=== PATIENT | female | born 1980 | race Caucasian/White ===

== ENCOUNTER 2017-02-07 12:18 | Emergency (ER) | payer SELFPAY ==
[~2017-02-07] VITALS: Ht 170.2 cm; Wt 70.0 kg
[~2017-02-07 12:18] MED LIST: CLON.1 PO; ZOFR4TAB3 PO
[2017-02-07 12:27] VITALS: BP 131/70; PULSE 90; RESP 16; TEMP 98.3; O2SAT 100
[2017-02-07 12:58] LABS: GLUCOSE,URINE NEG (NEG); KETONE, URINE NEG (NEG); NITRITE,URINE NEG (NEG)
[2017-02-07 13:03] LABS: BLOOD, URINE MOD (NEG); METHOD OF COLLECTION CLEAN CATCH; URINE COLOR YELLOW (YELLW/STRAW)
[2017-02-07 13:04] LABS: BACTERIA, URINE FEW /hpf; COMMENT (UR) CULT NOT INDICATED; CULTURE IF INDICATED CULT NOT INDICATED; RBC, URINE 15-19 /hpf (0-3); SQUAMOUS EPITHELIAL CELL URINE > 8 /hpf (0-5); WBC, URINE 0-2 /hpf (0-5)
[2017-02-07 13:20] LABS: AUTOMATED NEUTROPHIL # 3.9 TH/MM3 (1.8-7.7); BASOPHIL # 0.1 TH/MM3 (0-0.2); BASOPHIL % 1.1 % (0.0-2.0); EOSINOPHIL # 0.3 TH/MM3 (0-0.4); EOSINOPHIL % 4.7 % (0.0-4.0); HEMO FLAGS DIFF FINAL; LYMPH % 19.4 % (9.0-44.0); LYMPHOCYTE # 1.1 TH/MM3 (1.0-4.8); MEAN CELL VOLUME 89.8 FL (80.0-100.0); MEAN CORPUSCULAR HEMOGLOBIN 29.8 PG (27.0-34.0); MEAN CORPUSCULAR HGB CONC 33.2 % (32.0-36.0); NEUT % 67.8 % (16.0-70.0); PLATELET COUNT 208 TH/MM3 (150-450); RED BLOOD COUNT 4.01 MIL/MM3 (4.00-5.30); RED CELL DISTRIBUTION WIDTH 13.7 % (11.6-17.2); WHITE BLOOD COUNT 5.8 TH/MM3 (4.0-11.0)
--- NOTE | 2017-02-07 13:21 | PD ---
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 Carrion in the past and had been recommended for hysterectomy last year, presents to the ER today because she states that she has been spotting for several days and then today was passing blood clots which looked abnormal to her. She complains of pelvic pains which she currently rates at an 8 out of 10. She denies any fevers, nausea, vomiting, or any other symptoms. She has history of irregular menses in the past although she states the last 6 months has been better. Modifying Factors: None Associated Signs & Symptoms: Heavy vaginal bleeding and passing clots Risk Factors: None PFSH Past Medical History Anxiety: Yes Depression: Yes Diminished Hearing: No Influenza Vaccination: No ?: Not LMP: two weeks ago : 1 Para: 1 Past Surgical History Section: Yes Other Surgery: Yes ( THYROIDECTOMY) Social History Alcohol Use: No Tobacco Use: Yes (1 ppd) Substance Use: Yes (polysubstance) Allergies-Medications (Allergen,Severity, Reaction): Coded Allergies: Imitrex (Verified Allergy, Severe, Anaphylaxis, 02/07/17) Reported Meds & Prescriptions Reported Meds & Active Scripts Active Review of Systems Except as stated in HPI: all other systems reviewed are Neg Physical Exam Narrative GENERAL: Well-developed young white female patient currently in mild distress. Awake and oriented 3. SKIN: Focused skin assessment warm/dry. HEAD: Atraumatic. Normocephalic. EYES: Pupils equal and round. No scleral icterus. No injection or drainage. ENT: No nasal bleeding or discharge. Mucous membranes pink and moist. NECK: Trachea midline. No JVD. CARDIOVASCULAR: Regular rate and rhythm. No murmur appreciated. RESPIRATORY: No accessory muscle use. Clear to auscultation. Breath sounds equal bilaterally. GASTROINTESTINAL: Abdomen soft, pelvic tenderness without guarding or rebound, nondistended. Hepatic and splenic margins not palpable. GENITOURINARY: Normal external genitalia without lesions or erythema. Vaginal vault with dark blood but no significant drainage. Cervical os was closed without drainage. Mild cervical motion tenderness. Uterus mildly tender and nonenlarged. Bilateral adnexa nontender without masses. MUSCULOSKELETAL: No obvious deformities. No clubbing. No cyanosis. No edema. NEUROLOGICAL: Awake and alert. No obvious cranial nerve deficits. Motor grossly within normal limits. Normal speech. PSYCHIATRIC: Appropriate mood and affect; insight and judgment normal. Data Data Last Documented VS Vital Signs Date Time Temp Pulse Resp B/P Pulse Ox O2 Delivery O2 Flow Rate FiO2 02/07/17 13:32 68 16 125/60 98 Room Air 02/07/17 12:27 98.3 Orders Complete Blood Count With Diff (02/07/17 12:32) Basic Metabolic Panel (Bmp) (02/07/17 12:32) Urinalysis - C+S If Indicated (02/07/17 12:32) Ed Urine Pregnancytest Poc (02/07/17 12:32) Gc And Chlamydia Pcr (02/07/17 13:27) Wet Prep Profile (02/07/17 13:27) Labs Laboratory Tests Test 02/07/17 02/07/17 12:40 13:10 Urine Collection Type CLEAN CATCH Urine Color YELLOW Urine Turbidity CLEAR Urine pH 7.0 Urine Specific Stem 1.025 Urine Protein TRACE mg/dL Urine Glucose (UA) NEG mg/dL Urine Ketones NEG mg/dL Urine Occult Blood MOD Urine Nitrite NEG Urine Bilirubin NEG Urine Leukocyte Esterase TRACE Urine RBC 15-19 /hpf Urine WBC 0-2 /hpf Urine Squamous Epithelial > 8 /hpf Cells Urine Bacteria FEW /hpf Microscopic Urinalysis Comment CULT NOT INDICATED Urine Collection Time 12:40 White Blood Count 5.8 TH/MM3 Red Blood Count 4.01 MIL/MM3 Hemoglobin 11.9 GM/DL Hematocrit 36.0 % Mean Corpuscular Volume 89.8 FL Mean Corpuscular Hemoglobin 29.8 PG Mean Corpuscular Hemoglobin 33.2 % Concent Red Cell Distribution Width 13.7 % Platelet Count 208 TH/MM3 Mean Platelet Volume 9.0 FL Neutrophils (%) (Auto) 67.8 % Lymphocytes (%) (Auto) 19.4 % Monocytes (%) (Auto) 7.0 % Eosinophils (%) (Auto) 4.7 % Basophils (%) (Auto) 1.1 % Neutrophils # (Auto) 3.9 TH/MM3 Lymphocytes # (Auto) 1.1 TH/MM3 Monocytes # (Auto) 0.4 TH/MM3 Eosinophils # (Auto) 0.3 TH/MM3 Basophils # (Auto) 0.1 TH/MM3 CBC Comment DIFF FINAL Differential Comment Sodium Level 139 MEQ/L Potassium Level 3.6 MEQ/L Chloride Level 104 MEQ/L Carbon Dioxide Level 29.8 MEQ/L Anion Gap 5 MEQ/L Blood Urea Nitrogen 12 MG/DL Creatinine 0.58 MG/DL Estimat Glomerular Filtration 119 ML/MIN Rate Random Glucose 95 MG/DL Calcium Level 8.6 MG/DL MDM Medical Decision Making Medical Screen Exam Complete: Yes Emergency Medical Condition: Yes Medical Record Reviewed: Yes Interpretation(s) Laboratory Tests Test 02/07/17 02/07/17 12:40 13:10 Urine Occult Blood MOD (NEG) Urine Leukocyte Esterase TRACE (NEG) Urine RBC 15-19 /hpf (0-3) Urine Squamous Epithelial > 8 /hpf (0-5) Cells Urine Bacteria FEW /hpf (NONE) Eosinophils (%) (Auto) 4.7 % (0.0-4.0) Differential Diagnosis Pelvic pain, vaginal bleedingmenorrhagia versus dysfunctional uterine bleeding versus threatened AB versus ectopic Narrative Course Patient's test is negative. Her H&H is stable. Vital signs are stable in the ER. Pelvic exam shows that she is no longer bleeding. At this point, I suspect that she may have some acute on chronic dysfunctional uterine bleeding. She has history of endometriosis well. My plan would be to release her with follow-up to her [employer]. Return for any worsening in bleeding, pain, and as needed. The plan has been discussed with her and she states understanding. Diagnosis Primary Impression: Dysfunctional uterine bleeding Med/Other Pt SpecificInfo: Prescription(s) given Scripts Ibuprofen (Motrin Ib)200 Mg [id number] Mg PO Q6H PRN (PAIN SCALE 1 TO 10) #21 TAB Ref 0 Prov:Lindsey Johnson MD 02/07/17 Disposition: 01 DISCHARGE HOME Condition: Stable Lindsey Johnson MD February 07, 2017 13:21
[2017-02-07 13:30] LABS: POTASSIUM 3.6 MEQ/L (3.5-5.1)
[2017-02-07 13:32] VITALS: BP 125/60; PULSE 68; RESP 16; O2SAT 98
[2017-02-07 13:33] LABS: BICARBONATE 29.8 MEQ/L (21.0-32.0)
[2017-02-07] MEDS ORDERED: MOTR200T4 PO (13:40)
[2017-02-07 18:58] LABS: CHLAMYDIA PCR NOT DETECTED (NOT DETECT); NEISSERIA PCR NOT DETECTED (NOT DETECT)
== END 2017-02-07 13:59 | disposition home or self-care (01) ==
LOC: PHED 12:18
DX: N93.8 Other specified abnormal uterine and vaginal bleeding (principal); F41.9 Anxiety disorder, unspecified; F32.9 Major depressive disorder, single episode, unspecified; F17.200 Nicotine dependence, unspecified, uncomplicated
CPT/HCPCS: 80048; 81001; 84703; 85025; 87210; 87491; 87591; 99283